=== PATIENT | male | born 1990 | race Two or more races ===

== ENCOUNTER 2024-12-30 15:01 | Emergency (ER) | payer BC ==
[~2024-12-30] VITALS: Ht 167.6 cm; Wt 65.8 kg
[2024-12-30] MEDS ORDERED: PROTONIX40 MG PO (15:56)
[2024-12-30] MEDS ORDERED: FAMOTIDINE/PF 20 MG in 0.9 % SODIUM CHLORIDE 8 ML IV PUSH STA (16:37)
[2024-12-30] MEDS ORDERED: ONDANSETRON HCL 2 MG/ML VIAL IV ONE (16:45)
[2024-12-30] MEDS ORDERED: 0.9 % SODIUM CHLORIDE 1,000 ML IV SCH (16:45)
[2024-12-30 17:21] LABS: BASO % 0.1 % (0.1-1.2); EOS # 0.00 (0.04-0.54); EOS % 0.0 % (0.7-7.0); LYMPH # 1.24 (1.18-3.74); LYMPH % 13.1 % (19.3-53.1); MEAN PLATELET VOLUME 9.30 fl (9.4-12.4); MONO # 0.47 (0.24-0.82); MONO % 4.9 % (4.7-12.5); NEUT # 7.75 (1.56-6.13); NEUT % 81.6 % (34.0-71.1); RED CELL DISTRIBUTION WIDTH 16.2 % (11.6-14.4)
[2024-12-30 17:53] LABS: ALT/SGPT 23.0 U/L (12-78); AST/SGOT 16.0 U/L (15-37); BILIRUBIN TOTAL 0.78 mg/dL (0.3-1.2); BUN CREA RATIO 8.0 (7.0-25.0); CREATININE SERUM 1.05 mg/dL (0.70-1.30); GFR 80.38; GLOBULINA 4.0 G/DL (2.4-3.5); GLUCOSE FASTING 109.0 mg/dL (65-100); OSMOLALITY SERUM 280.0 MOSM/KG (275-295)
[2024-12-30 17:55] LABS: COVID-19 AG NEGATIVE (NEGATIVE)
[2024-12-30] MEDS ORDERED: ONDANSETRON ODT8 MG PO (20:37)
[2024-12-30] MEDS ORDERED: PEPCID AC20 MG PO (20:37)
== END 2024-12-30 20:59 | disposition home or self-care (01) ==
LOC: ER 15:01
PROVIDERS: General Practice
DX: K29.70 Gastritis, unspecified, without bleeding (principal); Z20.822 Contact with and (suspected) exposure to COVID-19